=== PATIENT | male | born 1955 | race Caucasian/White ===

== ENCOUNTER 2021-01-04 20:15 | Emergency (ER) | payer OTHER ==
[~2021-01-04] VITALS: Ht 167.6 cm; Wt 99.8 kg
[2021-01-04 21:40] VITALS: BP 140/99
--- NOTE | 2021-01-04 21:43 | NUR ---
TO LOBBY A/W BED AMBULATORY
--- NOTE | 2021-01-04 22:14 | NUR ---
Dr. Alicea examining patient.
--- NOTE | 2021-01-04 22:34 | NUR ---
Patient discharged with v/s stable. Written and verbal after care instructions given and explained. Patient verbalized understanding. Ambulatory with steady gait. All questions addressed prior to discharge. Advised to follow up with PMD.
== END 2021-01-04 22:34 | disposition home or self-care (01) ==
LOC: MED 20:15
DX: R06.02 Shortness of breath (principal); F41.1 Generalized anxiety disorder
CPT/HCPCS: 93005; 99283